=== PATIENT | male | born 1970 | race Two or more races ===

== ENCOUNTER 2021-06-16 12:29 | Emergency (ER) | payer SELFPAY ==
[~2021-06-16] VITALS: Ht 180.3 cm; Wt 111.6 kg
[2021-06-16 12:35] VITALS: BP 136/74
[2021-06-16] MEDS ORDERED: EPINEPHrine HCL 1 MG/1 ML AMP SC ONE (12:45)
[2021-06-16] MEDS ORDERED: methylPREDNISolone SOD SUCC 125 MG/2 ML VL IM ONE (12:45)
== END 2021-06-16 14:01 | disposition home or self-care (01) ==
LOC: ER 12:29
DX: T78.40XA Allergy, unspecified, initial encounter (principal); F17.210 Nicotine dependence, cigarettes, uncomplicated; F12.10 Cannabis abuse, uncomplicated; X58.XXXA Exposure to other specified factors, initial encounter
CPT/HCPCS: 71045; 96372; 99284; J0171; J2930